=== PATIENT | female | born 1960 | race Two or more races ===

== ENCOUNTER 2025-05-05 15:30 | Outpatient (RCR) | payer MEDICAID, SELFPAY ==
--- NOTE | 2025-04-23 08:48 | PT.OIERPT ---
PT OP Initial Eval Patient Information Outpatient Physical Therapy Treatment Date: 04/23/25 Visit Reasons: Rt knee pain/back pain Medical Diagnosis: M70.50 M51.26 Treatment Dx #1: R knee pain Treatment Dx #2: LBP Start of Care: 04/23/25 Date of Onset: 3 months ago Smoking Status Smoking Status: Never smoker Initial Assessment Subjective: Pt is 64 yr old peruvian speaking female who fell onto the R knee reports pain in the knee with kneeling, walking and stairs. Increased LBP with bending fwd and HH chores such as sweeping and mopping. PMH: HTN, DM, high cholesterol Imaging: Xray report in chart Pt goal: less knee and LBP Objective: R knee ArOM: Flexion: 130 deg Ext: full SLR: 45 deg Strength: Quads: 4-/5 Patella compression: positive Varus stress: positive gapping <5mm Anterior drawer: pain TTP: moderate of patella tendon and fat pads ?Trunk ArOM: ? B SB 50% of normal with pain ? Extension: 20% with pain around L4-5, L5-S1 ? Flexion: 10 from floor with LBP ? B rotation: 60% with pain ? TTP: moderate paraspinals L5-S1 ? Neuro: R SLR: positive Assessment: ? Pt presents with R knee pain consistent with bursitis and patellofemoral pain. Pt has trunk flexion sensitivity and overlying myofascial pain ? and TTP around L5-S1 consistent with lower lumbar disc bulge(s) with radiculopathy. Pt requires skilled therapy in order to decrease pain and improve sitting/standing tolerance and has fair rehab potential. Eval followed by HEP printout. 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 Ind with HEP 2. Decreased TTP of anterior R knee from mod to min 3. Decreased lower paraspinal TTP from mod to min 4. Improved HH chore tolerance to at least 30 minutes with <=3/10 LBP and no ?increase in R knee ssx ? Treatment Plan 1. Manual therapy ? 2. Therex ? 3. Modalities as indicated, moist heat, ice, estim, mechanical traction Frequency and Duration: 1-2x a week for 12 sessions plus the evaluation Certification Dates: 04/23/25 to 07/22/24 Procedure Charges OP PT Eval Mod Complex 30 minutes: Yes
--- NOTE | 2025-04-28 17:54 | PT.ODAYNRPT ---
PT Outpatient Daily Note OP Daily Note Outpatient Physical Therapy Treatment Date: 04/28/25 Visit Reasons: Rt knee pain/back pain Subjective: Same as time of evaluation Objective: See F/S for therex MHP: x7' R knee Assessment: Low tissue irritability of R knee with therex today Plan: Continue per POC Length of Time (minutes) of Treatment: 30 Minutes Procedure Charges Therapeutic Exercise 30 minutes: Yes
--- NOTE | 2025-05-05 16:27 | PT.ODAYNRPT ---
PT Outpatient Daily Note OP Daily Note Outpatient Physical Therapy Treatment Date: 05/05/25 Visit Reasons: Rt knee pain/back pain Subjective: Pt reports knee continues to hurt. Objective: Please see flow sheet for ther ex list. Assessment: Pt instructed on HS curl in standing, tolerated well. Plan: Continue with POC. Length of Time (minutes) of Treatment: 30 Minutes Procedure Charges Therapeutic Exercise 30 minutes: Yes
== END 2025-05-06 23:59 | disposition home or self-care (01) ==
LOC: CPTX 15:30
PROVIDERS: PCP Internal Medicine; Referring Provider Internal Medicine; Visit Provider Internal Medicine
DX: M25.561 Pain in right knee (principal); M51.26 Other intervertebral disc displacement, lumbar region; I10 Essential (primary) hypertension; E11.9 Type 2 diabetes mellitus without complications
CPT/HCPCS: 97110; 97162